=== PATIENT | female | born 2000 | race Caucasian/White ===

== ENCOUNTER 2021-05-28 04:00 | Outpatient (CLI) | payer OTHER, SELFPAY ==
[2021-05-28 08:30] LABS: ESR 1 mm/hr (0-20)
[2021-05-28 09:38] LABS: ALT 26 U/L (14-59); AST 14 U/L (15-37); Albumin 4.3 g/dL (3.4-5.0); Alkaline Phosphatase 60 U/L (46-116); Anion Gap 10.3 mmol/L (3-11); BUN 14 mg/dL (7-18); Bilirubin, Total 0.5 mg/dL (0.2-1.0); C-Reactive Protein 0.16 mg/dL (0.0-0.3); CO2 24.7 mmol/L (21.0-32.0); CREATININE 0.7 mg/dL (0.55-1.02); Calcium 9.4 mg/dL (8.5-10.1); Chloride 107 mmol/L (98-107); Glucose 86 mg/dL (74-106); Potassium 4.7 mmol/L (3.5-5.1); Sodium 142 mmol/L (136-145); Total Protein 7.5 g/dL (6.4-8.2)
== END 2021-05-28 04:01 | disposition home or self-care (01) ==
LOC: LBO 04:00
PROVIDERS: Visit Provider Physician Assistant
DX: L50.9 Urticaria, unspecified (principal)
CPT/HCPCS: 36415; 80053; 85652; 86140

== ENCOUNTER 2021-12-25 14:02 | Emergency (ER) | payer OTHER, SELFPAY ==
[2021-12-25 14:04] VITALS: BP 135/67; PULSE 80; RESP 20; TEMP 36.7; O2SAT 98
--- NOTE | 2021-12-25 14:21 | W.ED.GENAD ---
Discharge Plan Disposition Patient Disposition: HOME Condition: Stable Discharge Details Clinical Impression: Vaginal ulceration Primary Care Provider: NIRMALA SEVILLA ED Provider: Aura Lawson Discharge Instructions Instructions: Acute Wound Care (ED) Additional Instructions: You appear to have a small ulceration just inside the opening of the lower part of your vagina. This may have been due to friction during intercourse. This also less likely can be seen in an infection such as genital herpes. A skin swab of the area has been obtained and sent for analysis. You will be notified if it is positive for a herpes infection. You can apply [id number] A&E ointment to the area as needed for pain relief and to provide a protective barrier. Alternate tylenol and motrin as needed and directed for pain. Follow-up with women's wellness for reevaluation as needed. Return immediately to the emergency department if you develop any worsening or new concerning symptoms. Referrals: [facility] [place] [Provider Group] Discharge Data Discharge Date/Time-TO BE ENTERED AT DEPARTURE: 12/25/21 15:24 Discharge Physician: Aura Lawson Medical Decision Making 21-year-old female presents with vaginal pain for the past 4 days after vaginal intercourse with vaginal spotting of blood today. Vitals within normal limits. Patient appears comfortable and nontoxic. test negative. She has a 2 x 4 mm ulceration in the inferior aspect of the vaginal introitus. No active bleeding, cellulitis or abscess noted. Able to insert speculum and cervix appears normal. Suspect most likely ulceration in the setting of friction with intercourse. Less likely suspect herpes. A herpes swab was obtained and sent. Case discussed with gynecology who recommended and A & D ointment to the ulceration. We will hold on treatment for herpes as this is low suspicion. Advised to follow-up with women's wellness for reevaluation. Usual and customary return precautions given prior to discharge. Medical Records Medical records reviewed: Yes I reviewed the patient's medical records. HPI General Mode of arrival: ambulatory. Date/Time Provider Initiated Documentation: 12/25/21 14:03. Limitations to Documentation: no limitations. Information obtained by: patient. HPI Narrative: Patient is a 21-year-old female who presents with vaginal pain for the past 4 days. Patient states she had protected intercourse 4 days ago and started developing pain on the inside and outside of her vagina the following day. Patient states today she noted some blood after going to the bathroom near her vagina area. She states she looked in the mirror today and thought she saw a cut on the outside of her vagina. She states she is on the Depo-Medrol injection. She denies any spotting while being on the Depo shot. She denies any fever, nausea, vomiting, abdominal pain or vaginal discharge. Related Data Allergies Allergy/AdvReac Type Severity Reaction Status Date / Time No Known Allergies Allergy Unverified 12/25/21 14:11 General Stated Complaint: PT SITTER JOSÉ: 4 Review of Systems All systems reviewed & are unremarkable except as noted in HPI and below Constitutional Constitutional: Reports as per HPI, Denies chills and Denies fever(s) Eyes Eyes: Denies blurry vision ENT Ears, Nose, Mouth, and Throat: Denies dizziness, Denies sore throat and Denies throat swelling Cardiovascular Cardiovascular: Denies chest pain and Denies dyspnea Respiratory Respiratory: Denies cough and Denies dyspnea Gastrointestinal Gastrointestinal: Denies abdominal pain, Denies diarrhea and Denies vomiting Genitourinary Genitourinary: Denies hematuria and Denies dysuria Comments: vaginal pain Musculoskeletal Musculoskeletal: Denies back pain and Denies numbness Integumentary/Breasts Skin/Breast: Denies lesions and Denies rash Neurologic Neurologic: Denies dizziness, Denies localized weakness and Denies numbness Allergic/Immunologic Allergic/Immunologic: Denies throat swelling PFSH All Active Problems (Updated 12/25/21 @ 15:09 by Aura Lawson DO) Vaginal ulceration (Acute) Medical History (Updated 12/25/21 @ 15:09 by Aura Lawson DO) No significant past medical history Surgical History (Updated 12/25/21 @ 15:06 by Aura Lawson DO) No significant past surgical history Social History Smoking/Tobacco Use Status: Never Smoking risk assessment performed?: Yes Alcohol Intake: never Drug use: Occasionally Substance use type: marijuana Do you feel safe at home: Yes Do you feel safe in your relationship?: Yes Exam Const General: cooperative, healthy appearing and no acute distress Orientation: alert, awake and oriented x3 HENMT Head: normal to inspection Mouth: oral mucosae normal Eyes General: appearance normal, both eyes and all related structures Neck Neck: normal visual inspection Resp Effort & Inspection: normal respiratory effort and able to speak in complete sentences Cardio Rate: regular rate Speculum Exam - Cervix: normal appearance of the cervix Female genitals images: 1. 2 x 4 mm tender stage II ulceration noted in the inferior aspect of the vaginal introitus. There is no active bleeding, induration, fluctuance, erythema or edema. Skin General skin exam: no rashes or lesions noted Neuro General: patient alert, patient awake and patient oriented x3 Motor: muscle tone normal throughout Extrem General: normal to inspection and full ROM Psych Appearance: grossly normal Affect: normal affect Course Vital Signs Vital signs: Vital Signs Temperature 98.1 F 12/25/21 14:04 Pulse 80 12/25/21 14:04 Respiratory Rate 20 12/25/21 14:04 Blood Pressure 135/67 12/25/21 14:04 Pulse Oximetry 98 12/25/21 14:04 Temperature 98.1 F 12/25/21 14:04 Temperature Source Oral 12/25/21 14:04 Pulse 80 12/25/21 14:04 Respiratory Rate 20 12/25/21 14:04 Blood Pressure 135/67 12/25/21 14:04 Blood Pressure Position Sitting 12/25/21 14:04 Pulse Oximetry 98 12/25/21 14:04 Oxygen Delivery Method Room Air 12/25/21 14:04 Oxygen Flow Rate 0 12/25/21 14:04
[2021-12-25 14:59] LABS: Bilirubin Small (Negative); Blood Trace-intact (Negative); Clarity Cloudy (Clear); Glucose Negative (Negative); Ketones 15 mg/dL (Negative); Leukocyte Esterase Negative (Negative); Nitrite Negative (Negative); Specific Gravity >= 1.030 (1.005-1.025); Urobilinogen 0.2 EU/dL (Up TO 0.2)
[2021-12-25 15:08] LABS: Bacteria Many HPF (Negative)
[2021-12-25 15:09] LABS: C & S Indicated? Yes
[2021-12-25 15:20] VITALS: BP 122/74; PULSE 106; RESP 12; O2SAT 99
[2021-12-26 19:50] LABS: HSV 1 DNA Result Negative (Negative); HSV 2 DNA Result Negative (Negative)
== END 2021-12-25 15:24 | disposition home or self-care (01) ==
PROVIDERS: Emergency Provider Physician Assistant; PCP Family Medicine
DX: N76.5 Ulceration of vagina (principal)
CPT/HCPCS: 81025; 87529; 99282; 81003; 81015; 87086

== ENCOUNTER 2022-02-05 20:38 | Emergency (ER) | payer OTHER, SELFPAY ==
[2022-02-05 20:42] VITALS: BP 134/71; PULSE 86; RESP 16; TEMP 36.8; O2SAT 99
--- NOTE | 2022-02-05 21:19 | W.ED.GENAD ---
Discharge Plan Disposition Patient Disposition: Home Condition: Stable Discharge Details Clinical Impression: Fracture of tooth Primary Care Provider: NIRMALA SEVILLA ED Provider: Keny Lu Home Meds and New Rx's Prescriptions: New amoxicillin 875 mg tablet 875 mg PO BID Qty: 20 0RF Discharge Instructions Additional Instructions: Amoxicillin as directed. [id number] Tylenol and/or Motrin as directed for discomfort. Please watch for new or worsening symptoms and return to the ER for any concerns. Lastly, I would like you to contact your dentist first thing on Tuesday to discuss your ER visit, ongoing symptoms, and need for outpatient reevaluation. I know you have an appointment scheduled for March 02 but I would prefer you not wait that long. Medical Decision Making This is a 21-year-old female who is otherwise healthy, reports that she has had issues with her right upper wisdom tooth ever since he came in, scheduled to have all 4 wisdom teeth taken out March 02. She states prior to arrival she was sucking on a straw and her right upper wisdom tooth fractured. She states that she was able to spit a small piece of the tooth out. The remaining tooth is intact but she feels an area that is loose and would like it removed. Clinically she appears well, nontoxic. Pain is a 2 out of 10. I explained to her that we do not do dental extractions here in the ER. Given the acute fracture I would place her on amoxicillin and give her first dose now. I do recommend that she contact her dentist on Tuesday to discuss her ER visit and need for reevaluation, do not recommend waiting until March 02. Standard discharge and return precautions were provided. Patient understands, is agreeable to this plan, and has no additional questions or concerns upon discharge. This documentation was generated using Jipioation system, please disregard any oddities of phrase or misspellings. Medical Records Medical records reviewed: Yes I reviewed the patient's medical records. Sign Out No HPI General Mode of arrival: ambulatory. Date/Time Provider Initiated Documentation: 02/05/22 20:51. Limitations to Documentation: no limitations. Information obtained by: patient. History of Present Illness 21 year old F presents to the emergency department with the chief complaint of R upper wisdom tooth fracture, described as mild, with intensity rated at 2. Quality is described as aching, and is localized to the mouth. Patient reports no radiation. Patient started experiencing this minute(s) (35) and it has been constant. No relieving factors improve symptom(s), No exacerbating factors reported . Patient notes no other symptoms.. Patient did receive the following treatments prior to arrival, none Related Data Home Medications Medication Instructions Recorded Confirmed amoxicillin 875 mg tablet 875 mg PO BID #20 tabs 02/05/22 Previous Rx's Medication Instructions Recorded amoxicillin 875 mg tablet 875 mg PO BID #20 tabs 02/05/22 Allergies Allergy/AdvReac Type Severity Reaction Status Date / Time No Known Allergies Allergy Unverified 12/25/21 14:11 General Stated Complaint: DentalOral JOSÉ: 5 Review of Systems Constitutional Constitutional: Denies fever(s) ENT Ears, Nose, Mouth, and Throat: Denies sore throat Integumentary/Breasts Skin/Breast: Denies rash PFSH All Active Problems Fracture of tooth (Acute) Medical History No significant past medical history Surgical History No significant past surgical history Social History Smoking/Tobacco Use Status: Never Smoking risk assessment performed?: Yes Alcohol Intake: never Drug use: Occasionally Substance use type: marijuana Do you feel safe at home: Yes Do you feel safe in your relationship?: Yes Exam Const General: cooperative, healthy appearing, comfortable and no acute distress Orientation: alert and awake [facility] Head: normal to inspection, normocephalic and atraumatic Ears: external ears normal, TM's normal bilaterally and EAC's normal General nose exam: external nose normal Face and sinus: normal facial exam Mouth: oral mucosae normal and moist mucous membranes Teeth image: 1. There is a fracture to tooth #1. Minimal local tenderness. There is no swelling, discharge, signs of abscess. No trismus. Airway is patent. Throat: posterior oropharynx normal Eyes General: appearance normal, both eyes and all related structures Conjunctivae: conjunctivae normal Neck Neck: normal visual inspection, full ROM, no meningeal signs, trachea midline and supple Resp Effort & Inspection: normal respiratory effort and able to speak in complete sentences Skin General skin exam: no rashes or lesions noted Neuro General: patient alert, patient awake, moves all extremities and no focal motor deficits Cognition: normal cognition Speech: speech normal Gait: normal gait Sensory Exam: no sensory deficits noted Psych Appearance: grossly normal Mental Status: mental status grossly normal Course Vital Signs Vital signs: Vital Signs Temperature 36.8 C 02/05/22 20:42 Pulse 86 02/05/22 20:42 Respiratory Rate 16 02/05/22 20:42 Blood Pressure 134/71 02/05/22 20:42 Pulse Oximetry 99 02/05/22 20:42 Temperature 36.8 C 02/05/22 20:42 Pulse 86 02/05/22 20:42 Respiratory Rate 16 02/05/22 20:42 Respiratory Effort 02/05/22 20:45 Blood Pressure 134/71 02/05/22 20:42 Blood Pressure Position Sitting 02/05/22 20:42 Pulse Oximetry 99 02/05/22 20:42 Oxygen Delivery Method Room Air 02/05/22 20:42 Oxygen Flow Rate 0 02/05/22 20:42 Pain Level 1 02/05/22 20:42
[2022-02-05] MEDS: Amoxicillin 875 MG TAB PO (21:30)
== END 2022-02-05 21:30 | disposition home or self-care (01) ==
PROVIDERS: Emergency Provider Physician Assistant; PCP Family Medicine
DX: S02.5XXA Fracture of tooth (traumatic), initial encounter for closed fracture (principal); X58.XXXA Exposure to other specified factors, initial encounter
CPT/HCPCS: 99283

== ENCOUNTER → 2023-07-13 17:25 | Outpatient (CLI) | payer OTHER, SELFPAY ==
--- NOTE | 2023-07-13 17:15 | DI.RAD_ITS ---
Exam(s) XR CHEST 2V PA LATERAL EXAM: XR CHEST 2V PA LATERAL CLINICAL HISTORY: evaluate pna. TECHNIQUE: 2D digital imaging was performed. COMPARISON: No exams were available for comparison FINDINGS: 2 views: Heart size is normal. The mediastinum is not widened. Lungs are clear. No infiltrates nor pleural effusions. IMPRESSION: No acute pulmonary findings. DATA REPOSITORY: RADIATION DOSE DELIVERED:
--- NOTE | 2023-07-13 18:12 | DI.VRAD_ITS ---
PROCEDURE INFORMATION: Exam: XR Chest Exam date and time: 07/13/2023 17:51 Age: 23 years old Clinical indication: Other: Eval pna TECHNIQUE: Imaging protocol: Radiologic exam of the chest. Views: 2 views. COMPARISON: No relevant prior studies available. FINDINGS: Lungs: No consolidation. Pleural spaces: No pleural effusion. No pneumothorax. Heart/Mediastinum: No cardiomegaly. Bones/joints: No acute fracture. IMPRESSION: Normal. Dictated and Authenticated by: Yamileth Miramontes MD. Ordering:COLT Navarro MD
== END ==
PROVIDERS: PCP Family Medicine; Visit Provider Nurse Practitioner Family
DX: J06.9 Acute upper respiratory infection, unspecified (principal)
CPT/HCPCS: 71046